=== PATIENT | male | born 1980 | race Caucasian/White ===

== ENCOUNTER 2016-11-06 19:00 | Emergency (ER) | payer OTHER ==
[~2016-11-06] VITALS: Ht 175.3 cm; Wt 82.3 kg
[2016-11-06 19:06] VITALS: BP 131/85
[2016-11-06 19:54] LABS: HEMATOCRIT 51.2 % (39.2-51.8); WHITE BLOOD COUNT 9.6 x10^3/uL (3.4-10)
[2016-11-06 20:04] LABS: ASPARTATE AMINO TRANSFERASE 20 U/L (15-37); BLOOD UREA NITROGEN 17 mg/dL (7-18)
== END 2016-11-06 20:38 | disposition home or self-care (01) ==
LOC: ED 20:00
DX: L03.211 Cellulitis of face (principal); H60.11 Cellulitis of right external ear
CPT/HCPCS: 36415; 80053; 85025; 99284